=== PATIENT | male | born 1980 | race Caucasian/White ===

== ENCOUNTER 2018-05-13 08:34 | Emergency (ER) | payer OTHER ==
[~2018-05-13] VITALS: Ht 160 cm; Wt 54.4 kg
[~2018-05-13 08:34] MED LIST: AMOXICILLIN500 MG PO; HYDROCODONE BIT1 T11 PO; MOTRIN800 MG PO
[2018-05-13] MEDS ORDERED: ZITHROMAX250 MG PO (10:51)
[2018-05-13] MEDS ORDERED: PREDNISONE20 M1 PO (10:51)
[2018-05-13] MEDS ORDERED: TESSALON PERLE100 M1 PO (10:51)
[2018-05-13] MEDS ORDERED: PROVENTIL HFA6.7 GM INH (10:51)
== END 2018-05-13 11:50 | disposition home or self-care (01) ==
LOC: ED 08:34
DX: J40 Bronchitis, not specified as acute or chronic (principal); F17.200 Nicotine dependence, unspecified, uncomplicated

== ENCOUNTER 2023-05-25 06:35 | Emergency (ER) | payer OTHER ==
[~2023-05-25] VITALS: Ht 160 cm; Wt 55.3 kg
[~2023-05-25 06:35] MED LIST changes: +PREDNISONE20 M1 PO; +PROVENTIL HFA6.7 GM INH; +TESSALON PERLE100 M1 PO; +ZITHROMAX250 MG PO
[2023-05-25] MEDS ORDERED: WELLBUTRIN XL150 MG PO (06:46)
== END 2023-05-25 07:23 | disposition home or self-care (01) ==
LOC: ED 06:35
DX: H00.014 Hordeolum externum left upper eyelid (principal); Z87.891 Personal history of nicotine dependence

== ENCOUNTER 2023-05-27 21:30 | Emergency (ER) | payer OTHER ==
[~2023-05-27 21:30] MED LIST changes: +WELLBUTRIN XL150 MG PO
== END 2023-05-27 23:01 | disposition home or self-care (01) ==
LOC: ED 21:30
DX: R23.4 Changes in skin texture (principal); H00.016 Hordeolum externum left eye, unspecified eyelid

== ENCOUNTER 2023-11-09 18:22 | Emergency (ER) | payer BC ==
[~2023-11-09] VITALS: Ht 160 cm; Wt 54.0 kg
== END 2023-11-09 20:36 | disposition home or self-care (01) ==
LOC: ED 18:22
DX: S93.602A Unspecified sprain of left foot, initial encounter (principal); W22.8XXA Striking against or struck by other objects, initial encounter; Y93.39 Activity, other involving climbing, rappelling and jumping off; Y92.89 Other specified places as the place of occurrence of the external cause; Y99.8 Other external cause status